=== PATIENT | female | born 1995 | race Two or more races ===

== ENCOUNTER → 2018-07-29 | Emergency (ER) | payer OTHER ==
[~2018-07-29] VITALS: Ht 157.5 cm; Wt 48.5 kg
[~2018-07-29] MED LIST: ZANTAC300 MG PO; ZOFRAN ODT4 MG PO
== END | disposition home or self-care (01) ==
LOC: ER 20:32
DX: O21.0 Mild hyperemesis gravidarum (principal); O26.891 Other specified pregnancy related conditions, first trimester; R10.2 Pelvic and perineal pain; Z34.01 Encounter for supervision of normal first pregnancy, first trimester

== ENCOUNTER → 2018-08-24 | Emergency (ER) | payer OTHER ==
[~2018-08-24] VITALS: Ht 157.5 cm; Wt 47.6 kg
[~2018-08-24] MED LIST changes: +METOCLOPRAMIDE10 MG
== END | disposition home or self-care (01) ==
LOC: ER 11:18
DX: O26.891 Other specified pregnancy related conditions, first trimester (principal); O21.8 Other vomiting complicating pregnancy; Z34.01 Encounter for supervision of normal first pregnancy, first trimester

== ENCOUNTER 2018-10-05 07:20 | Emergency (ER) | payer OTHER ==
[~2018-10-05] VITALS: Ht 157.5 cm; Wt 50.8 kg
== END 2018-10-05 13:00 | disposition home or self-care (01) ==
LOC: ER 07:20
DX: O98.512 Other viral diseases complicating pregnancy, second trimester (principal); B34.9 Viral infection, unspecified; Z34.02 Encounter for supervision of normal first pregnancy, second trimester

== ENCOUNTER 2018-11-03 16:12 | Outpatient (CLI) | payer OTHER ==
[~2018-11-03 16:12] MED LIST changes: -FOLIC ACID0.4 MG PO
[2018-11-03] MEDS ORDERED: FOLIC ACID0.4 MG PO (16:24)
== END 2018-11-04 10:56 | disposition home or self-care (01) ==
LOC: OBS/DEL 16:12
DX: O26.892 Other specified pregnancy related conditions, second trimester (principal); E16.1 Other hypoglycemia; Z34.02 Encounter for supervision of normal first pregnancy, second trimester

== ENCOUNTER → 2018-11-03 | Emergency (ER) | payer OTHER ==
[~2018-11-03] MED LIST changes: +FOLIC ACID0.4 MG PO
== END | disposition left against medical advice (07) ==
LOC: ER 13:55
DX: Z53.20 Procedure and treatment not carried out because of patient's decision for unspecified reasons (principal)

== ENCOUNTER 2019-02-08 15:09 | Outpatient (CLI) | payer OTHER ==
[~2019-02-08 15:09] MED LIST changes: +FOLIC ACID0.4 MG PO
== END 2019-02-09 10:13 | disposition home or self-care (01) ==
LOC: OBS/DEL 15:09
DX: O26.893 Other specified pregnancy related conditions, third trimester (principal); R10.2 Pelvic and perineal pain; Z34.03 Encounter for supervision of normal first pregnancy, third trimester

== ENCOUNTER 2019-02-18 00:15 | Inpatient (IN) | payer OTHER ==
[~2019-02-18] VITALS: Ht 157.5 cm; Wt 57.2 kg
[2019-02-18] MEDS ORDERED: PRENATAL 19 TA1 EAC1 PO (01:50)
== END 2019-02-20 17:37 | disposition home or self-care (01) | DRG 807 ==
LOC: LDR 00:15 → OB/GYN 00:15 → LDR 01:04 → OB/GYN 17:19
PROVIDERS: ADMIT Obstetrics & Gynecology
PROC: 10E0XZZ Delivery of Products of Conception, External Approach (ICD-10-PCS; principal; 2019-02-18)
PROC: 0HQ9XZZ Repair Perineum Skin, External Approach (ICD-10-PCS; 2019-02-18)
PROC: 4A1HXCZ Monitoring of Products of Conception, Cardiac Rate, External Approach (ICD-10-PCS; 2019-02-18)
DX: O70.0 First degree perineal laceration during delivery (principal); Z37.0 Single live birth; Z3A.38 38 weeks gestation of pregnancy

== ENCOUNTER → 2023-08-07 08:03 | Outpatient (CLI) | payer OTHER ==
[~2023-08-07 08:03] MED LIST changes: +PRENATAL 19 TA1 EAC1 PO
== END | disposition home or self-care (01) ==
LOC: PRENATAL 08:03
PROVIDERS: ATTEND Obstetrics & Gynecology Maternal & Fetal Medicine
DX: O36.80X0 Pregnancy with inconclusive fetal viability, not applicable or unspecified (principal); O26.849 Uterine size-date discrepancy, unspecified trimester; Z36.0 Encounter for antenatal screening for chromosomal anomalies; Z3A.18 18 weeks gestation of pregnancy

== ENCOUNTER 2023-12-09 14:07 | Outpatient (CLI) | payer OTHER | END 2023-12-09 14:09 | disposition home or self-care (01) | LOC: PRENATAL 14:07 | PROVIDERS: ATTEND Obstetrics & Gynecology Maternal & Fetal Medicine | DX: O26.843 Uterine size-date discrepancy, third trimester (principal); O36.8130 Decreased fetal movements, third trimester, not applicable or unspecified; O36.5930 Maternal care for other known or suspected poor fetal growth, third trimester, not applicable or unspecified; Z3A.36 36 weeks gestation of pregnancy ==

== ENCOUNTER 2023-12-16 19:32 | Inpatient (IN) | payer OTHER ==
[~2023-12-16] VITALS: Ht 157.5 cm; Wt 2.3 kg
[2023-12-16 22:03] LABS: HEMATOCRIT 29.7 % (36.0-45.00); MEAN CELL VOLUME 85.1 fL (80.00-100.00); MEAN CORPUSCULAR HEMOGLOBIN 28.6 pg (27.00-32.0); MEAN CORPUSCULAR HGB CONC 33.6 g/dl (32.0-36.0); PH,URINE 6.5 (5.0-8.0); PLATELET COUNT 136 K/uL (150-450); RED BLOOD COUNT 3.49 M/uL (4.00-6.00); RED CELL DISTRIBUTION WIDTH 15.3 % (11.5-14.5); URINE APPEARANCE Cloudy; URINE BILIRRUBIN Negative (NEGATIVE); URINE BLOOD Negative; URINE COLOR Yellow; URINE GLUCOSE Negative (NEGATIVE); URINE LEUKOCYTE Moderate; URINE NITRATE Negative; URINE PROTEIN Negative (NEGATIVE)
[2023-12-16 22:04] LABS: URINE BACTERIA 2499.7 uL (0.0-1933); URINE EPITHELIAL CELLS 74.2 uL (0.0-38.8); URINE RBC 2.7 uL (0.0-20.8); URINE WBC 283.2 uL (0.0-23.2)
[2023-12-16] MEDS ORDERED: PRENATAL TABLE1 EAC4 PO (22:12)
[2023-12-16 22:21] LABS: INR < 0.93; PARTIAL THROMBOPLASTIN TIME 25.6 SECONDS (22.0-34.0); PROTHROMBIN TIME 9.3 SECONDS (9.0-11.5)
[2023-12-17] MEDS ORDERED: CEFAZOLIN SODIUM 1,000 MG VIAL ONE (05:55)
[2023-12-17] MEDS ORDERED: CEFAZOLIN SODIUM 1,000 MG VIAL IV SCH (06:00)
[2023-12-17] MEDS ORDERED: OXYTOCIN 20 UNITS/500ML RL PIGGYBAG IV SCH (10:15)
[2023-12-17] MEDS ORDERED: OXYTOCIN 10 UNITS/ML VIAL ONE ×2 (12:02→17:06)
[2023-12-17] MEDS ORDERED: ERYTHROMYCIN BASE 1 GM TUBE OP ONE (12:02)
[2023-12-17] MEDS ORDERED: RINGERS SOLUTION,LACTATED 1,000 ML IV SCH (14:00)
[2023-12-17] MEDS ORDERED: OXYTOCIN 1,000 ML IV SCH (14:00)
[2023-12-17] MEDS ORDERED: ERYTHROMYCIN BASE 1 GM TUBE OP SCH (14:00)
[2023-12-17] MEDS ORDERED: PROMETHAZINE HCL 25 MG/ML AMPUL IM PRN (14:00)
[2023-12-17] MEDS ORDERED: MEPERIDINE HCL/PF 50 MG/ML VIAL IM PRN (14:00)
[2023-12-17] MEDS ORDERED: CHLORHEXIDINE GLUCONATE 120 ML BOTTLE TOP SCH (14:00)
[2023-12-17 14:48] LABS: ABG PH 7.315 (7.35-7.45); ABG pCO2 43.9 mmHg (35-45); BASE EXCESS -4.3 mmol/l; BICARBONATE 21.8 mmol/l (23-25); SaO2 30.6 %; Tco2 23.2 mmol/l; allen test SATISFACTORY; o2 21 %; puncture site RADIAL RIGHT
[2023-12-17] MEDS ORDERED: MORPHINE SULFATE 4 MG/ML VIAL IV ONE (16:05)
[2023-12-17 17:31] LABS: HEMATOCRIT 25.8 % (36.0-45.00); MEAN CELL VOLUME 85.9 fL (80.00-100.00); MEAN CORPUSCULAR HGB CONC 34.1 g/dl (32.0-36.0); RED CELL DISTRIBUTION WIDTH 15.2 % (11.5-14.5)
[2023-12-17 17:37] LABS: HEMOGLOBIN 8.8 g/dL (12.0-15.00); MEAN CORPUSCULAR HEMOGLOBIN 29.3 pg (27.00-32.0); PLATELET COUNT 118 K/uL (150-450)
[2023-12-18] MEDS ORDERED: OxyCODONE HCL/APAP UD (PERCOCET) PO PRN (09:00)
[2023-12-18] MEDS ORDERED: BISACODYL 10 MG/SUPP.RECT SUPP.RECT RECTAL STA (10:28)
== END 2023-12-19 14:57 | disposition home or self-care (01) | DRG 785 ==
LOC: LDR 19:32 → O/R 12-17 12:12 → OB/GYN 12-17 14:25
PROVIDERS: ADMIT Obstetrics & Gynecology; ATTEND Obstetrics & Gynecology
PROC: 4A1HXCZ Monitoring of Products of Conception, Cardiac Rate, External Approach (ICD-10-PCS; 2023-12-16)
PROC: 0UB70ZZ Excision of Bilateral Fallopian Tubes, Open Approach (ICD-10-PCS; 2023-12-17)
PROC: 10D00Z1 Extraction of Products of Conception, Low, Open Approach (ICD-10-PCS; principal; 2023-12-17 13:00)
DX: O36.5930 Maternal care for other known or suspected poor fetal growth, third trimester, not applicable or unspecified (principal); Z3A.37 37 weeks gestation of pregnancy; Z37.0 Single live birth; Z20.822 Contact with and (suspected) exposure to COVID-19; Z30.2 Encounter for sterilization